=== PATIENT | male | born 2005 | race Caucasian/White ===

== ENCOUNTER 2024-01-29 20:16 | Emergency (ER) | payer MEDICAID, SELFPAY ==
[2024-01-29 20:24] VITALS: BP 146/126; PULSE 115; RESP 16; TEMP 36.4; O2SAT 99
--- NOTE | 2024-01-29 20:30 | DI.RAD_ITS ---
Exam(s) XR LUMBAR SPINE AP, LAT EXAM: XR LUMBAR SPINE AP, LAT CLINICAL HISTORY: Low back pain osteosarcoma history. TECHNIQUE: 2D digital imaging was performed. COMPARISON: No exams were available for comparison FINDINGS: Two views No evidence of fracture or listhesis. No disc space narrowing. Bone density normal. No osseous les ions evident in the lumbar vertebrae. Facet joints appear unremarkable. IMPRESSION: No significant osseous findings on these two views of the lumbosacral spine. DATA REPOSITORY: RADIATION DOSE DELIVERED:
--- NOTE | 2024-01-29 21:39 | DI.VRAD_ITS ---
PROCEDURE INFORMATION: Exam: XR Lumbosacral Spine Exam date and time: 01/29/2024 9:11 PM Age: 18 years old Clinical indication: Other: Low back pain osteosarcoma history TECHNIQUE: Imaging protocol: Radiologic exam of the lumbosacral spine. Views: 2 or 3 views. COMPARISON: No relevant prior studies available. FINDINGS: Bones/joints: Minimal retrolisthesis of L5 on S1 is presumed degenerative No acute fracture. Mild lordosis straightening Moderate foraminal stenosis at L5-S1 Soft tissues: Unremarkable. IMPRESSION: No acute findings. Lordosis straightening and moderate foraminal stenosis at L5-S1 Dictated and Authenticated by: Robinson Dowling MD. Ordering:ELIANA Keller MD
[2024-01-29 21:48] VITALS: PULSE 82
--- NOTE | 2024-01-29 21:49 | W.ED.GENAD ---
Discharge Plan Disposition Patient Disposition: Home Discharge Details Clinical Impression: Acute low back pain Primary Care Provider: SHAYY KUMAR ED Provider: Krishna Ford Home Meds and New Rx's Prescriptions: New lidocaine [Lidoderm] 5 % adhesive patch,medicated 1 patch topical DAILY Qty: 15 0RF Rx Instructions: leave on most painful area for up to 12 hrs lidocaine [Lidoderm] 5 % adhesive patch,medicated 1 patch topical DAILY Qty: 15 0RF Rx Instructions: leave on most painful area for up to 12 hrs Discharge Instructions Additional Instructions: You are seen in the emergency department for your back pain. Your x-ray showed no sign of any metastatic disease. As we discussed you will likely benefit from an MRI if your symptoms do not improve. Please call your primary care provider to arrange for an outpatient MRI. Please return to the emergency department if you develop any loss of control of your bowels or bladder develop any numbness or tingling between your legs or if you develop any weakness. A patch with numbing medicine has been sent to the [facility] pharmacy and then developed. Please use as directed. For your pain please take medications as follows: 1. Take acetaminophen (Tylenol), 1,000 mg (two 500 mg tabs) every 6 hours [2. Take ibuprofen (Advil), 400 mg every 6 hours.] HPI General Date/Time Provider Initiated Documentation: 01/29/24 20:31. HPI Narrative: [facility] This is an overall very well-appearing afebrile and initially tachycardic 18-year-old male with history of peripheral nerve sheath tumor now with atraumatic low back pain concerning for multiple etiologies. Patient has no saddle anesthesia to suggest cauda equina syndrome. No pain out of proportion to suggest necrotizing soft tissue infection. No recent instrumentation nor history of anticoagulants to suggest increased risk for spinal epidural hematoma. No fevers to suggest increased risk for final epidural abscess. No trauma to suggest increased risk for fracture. Nonetheless given the patient's history of malignancy I am concern for the possibility of recurrent sarcoma. Patient had no hydronephrosis to suggest ureterolithiasis. Soft nontender abdomen so I am not concerned for intra-abdominal infection. No right lower quadrant tenderness to suggest appendicitis. No left lower quadrant tenderness to suggest diverticulitis. No hypotension nor pulsatile mass to suggest increased risk for trips ruptured abdominal aortic aneurysm. No fevers nor cough to suggest pneumonia. No chest pain to suggest ACS. I considered sepsis however the patient is not septic appearing had reassuring vitals following repeat heart rate so did not draw blood cultures treat empirically with IV antibiotics nor check a lactate. Left-sided chest wall incision site appears to be healing well. Patient is not currently on chemotherapy and has not had fevers and not concern for neutropenic fever. Patient reports that he is currently weaning off of his gabapentin. No rash to back to suggest zoster. 10:33 PM Tachycardia resolved without intervention. I spoke with Dr. Mani Fajardo from orthopedics at [facility]. We discussed the patient's case and Dr. Fajardo did not feel that the patient required an emergent MRI in the absence of any red flag symptoms. I met with the patient and his arnaldo's mother. We discussed that he should follow-up with his primary care provider as he would likely benefit from an MRI of the lumbar spine if his symptoms did not improve to increase sensitivity for bony metastasis. I have asked health community midwife Naheed to have the patient seen later this week by his primary care provider. Patient and I discussed that he should return to the emergency department if he lost control of his bowels or bladder if he developed any numbness or tingling between his legs if he developed any weakness or if his symptoms worsened. Similarly advised him to return if he developed abdominal pain nausea vomiting or any fevers. He understood his return indications and was discharged with an empiric trial of expectant outpatient management. Prior to discharge given negative dimer I treated him with 5 mg of diazepam and provide him with Lidoderm patches. We also discussed his acetaminophen dosing as he reportedly took 2 g of acetaminophen just prior to arrival. I counseled him on safe dosing of acetaminophen and warned him of hepatic toxicity. I prescribed him several Lidoderm patches to his local pharmacy. 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 Patient reports taking 2 g of acetaminophen at 7 PM. He denies any loss of bowel or bladder control. He denies any trauma. He does state his pain is worse with movement. He is not having any abdominal pain. He denies any saddle anesthesia. He has had no weakness but has occasionally felt unsteady on his feet. No recent fevers. He denies any sensory changes. Exam General: Well-appearing in no acute distress speaking in complete sentences. Head: Normocephalic, atraumatic. Eye: Extraocular eye movements intact. No conjunctival injection. No scleral icterus. Ear, nose, mouth, throat: Grossly normal inspection. Normal voice, handling secretions normally. Neck: Trachea midline. Cardiovascular: Well-perfused distal extremities. Regular rate and rhythm Respiratory: Nonlabored respiration. Clear lungs bilaterally Gastrointestinal: Nondistended abdomen. Soft nontender. Back: Midline and right paraspinal lumbar tenderness. No step-offs. No deformities. No rash to back. Musculoskeletal: Left upper extremity status post amputation. Incision on left chest wall appears to be healing well under clean dry intact Mepilex dressing. Bilateral lower extremities 2+ PT and DP pulses. 5 out of 5 bilateral lower extremity strength in dorsi and plantarflexion. No clonus bilaterally. 5 out of 5 bilateral lower extremity strength on flexion and extension at the hips and knees. Skin: Normal for age and race, grossly normal temperature and turgor. No acute rash. Neurologic: Alert and appropriate, no apparent acute deficits. GCS 15. Psychiatric: Mood and manner are appropriate. Grooming and personal hygiene are appropriate. Related Data Home Medications Medication Instructions Recorded Confirmed lidocaine 5 % topical patch 1 patch topical DAILY #15 ea 01/29/24 (Lidoderm) lidocaine 5 % topical patch 1 patch topical DAILY #15 ea 01/29/24 (Lidoderm) Previous Rx's Medication Instructions Recorded lidocaine 5 % topical patch 1 patch topical DAILY #15 ea 01/29/24 (Lidoderm) lidocaine 5 % topical patch 1 patch topical DAILY #15 ea 01/29/24 (Lidoderm) Allergies Allergy/AdvReac Type Severity Reaction Status Date / Time No Known Allergies Allergy Unverified 01/29/24 20:23 General Stated Complaint: Orthopedic VENESSA: 3 Course Vital Signs Vital signs: Vital Signs Temperature 36.4 C L 01/29/24 20:24 Pulse 115 H 01/29/24 20:24 Respiratory Rate 16 01/29/24 20:24 Blood Pressure 146/126 H 01/29/24 20:24 Pulse Oximetry 99 01/29/24 20:24 Temperature 36.4 C L 01/29/24 20:24 Temperature Source Temporal Artery Scan 01/29/24 20:24 Pulse 82 01/29/24 21:48 Respiratory Rate 16 01/29/24 20:24 Respiratory Effort Normal, Non-Labored 01/29/24 20:36 Blood Pressure 146/126 H 01/29/24 20:24 Blood Pressure Position Sitting 01/29/24 20:24 Pulse Oximetry 99 01/29/24 20:24 Oxygen Delivery Method Room Air 01/29/24 20:24 Oxygen Flow Rate 0 01/29/24 20:24 Pain Level 6 01/29/24 20:36 Medical Decision Making Quality:SDOH Health Related Social Needs: No Data to Display PFSH All Active Problems (Updated 01/29/24 @ 22:29 by Krishna Ford MD) Acute low back pain (Acute) Social History Smoking risk assessment performed?: No POCUS Exam (ED) Limited Retroperitoneal(Renal)Exam DATE OF EXAM: 01/29/24 TIME OF EXAM: 22:04 PROVIDER THAT PERFORMED THE STUDY: Krishna Ford REASON FOR EXAM: Back pain/right side VISUALIZED STRUCTURES: Left kidney, Right kidney, Renal pelvis,left side, Renal pelvis, right side and Other structures: Bladder PERTINENT FINDINGS/IMPRESSION: no hydronephrosis present INCIDENTAL FINDINGS: No hydronephrosis bilaterally. Exam complete
[2024-01-29] MEDS: diazePAM 5 MG TAB PO (22:34)
[2024-01-29] MEDS: Lidocaine 5% Patch 1 PATCH TP (22:34)
[2024-01-29 22:46] VITALS: BP 133/67; PULSE 75; RESP 18; O2SAT 96
--- NOTE | 2024-01-29 23:10 | NUR.NOTE ---
Referral to Care Management to send referral to patient pcp Imer Perales [place] [facility] [place] f/u sooner rather than later to determine if MRI is needed. Dx of osteosarcoma.Nursing Note:
== END 2024-01-29 22:42 | disposition home or self-care (01) ==
PROVIDERS: Emergency Provider Emergency Medicine; PCP Family Medicine
DX: M54.50 Low back pain, unspecified (principal); C40.02 Malignant neoplasm of scapula and long bones of left upper limb; Z89.202 Acquired absence of left upper limb, unspecified level
CPT/HCPCS: 76775; 99284; 72100